=== PATIENT | male | born 1965 | race African-American/Black ===

== ENCOUNTER → 2016-11-05 | Outpatient (CLI) | payer OTHER | LOC: RAD 11:36 | DX: L40.0 Psoriasis vulgaris (principal); Z79.899 Other long term (current) drug therapy ==

== ENCOUNTER 2020-02-12 10:13 | Emergency (ER) | payer OTHER ==
[~2020-02-12] VITALS: Ht 172.7 cm; Wt 81.7 kg
[2020-02-12 10:14] VITALS: BP 164/109
[2020-02-12 10:54] LABS: HEMATOCRIT 41.4 % (42.0-52.0); MCH 31.5 pg (26.0-34.0); MCHC 33.8 g/dL (28.0-37.0); MCV 93.4 fL (80.0-100.0); PLATELET COUNT 253 thou/uL (150-400); RBC 4.43 mil/uL (4.50-6.00); RDW 12.9 % (10.5-14.5)
[2020-02-12 11:02] LABS: ANION GAP 7 mmol/L (7-16); BUN 11 mg/dL (7-18); CALCIUM 9.1 mg/dL (8.5-10.1); CHLORIDE 105 mmol/L (98-107); CO2 29 mmol/L (21-32); CREATININE 1.3 mg/dL (0.7-1.3); GLUCOSE 95 mg/dL (74-106); POTASSIUM 4.4 mmol/L (3.5-5.1); SODIUM 141 mmol/L (136-145)
[2020-02-12 11:10] LABS: TROPONIN-I <0.06 ng/mL (<0.06)
[2020-02-12 11:58] LABS: ABSOLUTE NEUTROPHILS 1.3 thou/uL (1.4-8.2)
--- NOTE | 2020-02-12 23:00 | EKG ---
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: rambo : 1965 Requested By: Bryan Gonzalez Order Number: [id number] MD: Jorge Reece Measurements Intervals [place] Rate: 78 P: 31 MS: 143 QRS: -1 QRSD: 92 T: 21 QT: 354 QTc: 404 Interpretive Statements Sinus rhythm Abnormal R-wave progression, early transition Baseline wander in lead(s) I No previous ECG available for comparison Electronically Signed On 02-12-2020 23:00:22 CDT by Jorge Reece [email or web address] <ELECTRONICALLY SIGNED> By: Jorge Reece MD, FACC 02/12/20 2300 1046 1046 Jorge Reece MD, [facility] /EPI
== END 2020-02-12 12:00 ==
LOC: ER 10:13
PROVIDERS: Emergency Medicine
DX: U07.1 COVID-19 (principal); R07.89 Other chest pain; R68.83 Chills (without fever); Z88.2 Allergy status to sulfonamides

== ENCOUNTER → 2020-05-11 | Outpatient (CLI) | payer OTHER ==
[2020-05-11 15:33] LABS: ABSOLUTE NEUTROPHILS 3.1 thou/uL (1.4-8.2); BASOPHILS 0.6 % (0.0-2.0); EOSINOPHILS 0.7 % (0.0-3.0); HEMATOCRIT 44.8 % (42.0-52.0); HEMOGLOBIN 15.5 gm/dL (14.0-18.0); LYMPHOCYTES 29.8 % (24.0-44.0); MCH 32.1 pg (26.0-34.0); MCHC 34.6 g/dL (28.0-37.0); MCV 92.8 fL (80.0-100.0); MONOCYTES 10.4 % (1.0-8.0); PLATELET COUNT 325 thou/uL (150-400); POLYS 58.5 % (36.0-66.0); RBC 4.82 mil/uL (4.50-6.00); RDW 12.9 % (10.5-14.5); WBC 5.3 thou/uL (4.0-11.0)
[2020-05-11 17:37] LABS: ALBUMIN 4.1 g/dL (3.4-5.0); ANION GAP 15 mmol/L (7-16); BUN 15 mg/dL (7-18); CALCIUM 9.5 mg/dL (8.5-10.1); CHLORIDE 103 mmol/L (98-107); CHOLESTEROL 263 mg/dL (<200); CO2 23 mmol/L (21-32); CREATININE 1.3 mg/dL (0.7-1.3); GLUCOSE 94 mg/dL (74-106); HDL CHOLESTEROL 76 mg/dL (>40); LDL CHOLESTEROL 167 mg/dL (<100); POTASSIUM 4.1 mmol/L (3.5-5.1); SGOT 15 U/L (15-37); SGPT 28 U/L (30-65); SODIUM 141 mmol/L (136-145); TC:HDL 3.5 Ratio (Not establshd); TOTAL BILIRUBIN 1.3 mg/dL (0.2-1.0); TOTAL PROTEIN 8.6 g/dL (6.4-8.2); TRIGLYCERIDE 104 mg/dL (<150); VLDL 21 mg/dL (<40)
[2020-05-11 17:38] LABS: SERUM ASSESSMENT Clear
[2020-05-12 02:06] LABS: GLYCOHEMOGLOBIN (HGB A1C) 5.4 % (4.8-5.6)
[2020-05-12 03:07] LABS: HAV IgM AB (ANTI-HAV IgM) Negative (Negative); HEPATITIS B SURFACE AG Negative (Negative); HEPATITIS C VIRUS AB <0.1 (0.0-0.9)
[2020-05-15 20:06] LABS: SYPHILIS AB Non Reactive (Non Reactive)
== END ==
LOC: LAB 14:42
PROVIDERS: ATTEND Family Medicine
DX: Z12.5 Encounter for screening for malignant neoplasm of prostate (principal); Z11.3 Encounter for screening for infections with a predominantly sexual mode of transmission; H53.9 Unspecified visual disturbance

== ENCOUNTER → 2020-05-13 | Outpatient (CLI) | payer OTHER | LOC: LAB 09:00 | PROVIDERS: ATTEND Family Medicine | DX: Z11.3 Encounter for screening for infections with a predominantly sexual mode of transmission (principal) ==

== ENCOUNTER → 2020-06-02 | Outpatient (CLI) | payer OTHER ==
[2020-06-02 12:53] LABS: ABSOLUTE NEUTROPHILS 2.8 thou/uL (1.4-8.2); BASOPHILS 0.6 % (0.0-2.0); EOSINOPHILS 0.6 % (0.0-3.0); HEMATOCRIT 46.6 % (42.0-52.0); HEMOGLOBIN 15.4 gm/dL (14.0-18.0); LYMPHOCYTES 28.6 % (24.0-44.0); MCH 31.1 pg (26.0-34.0); MCHC 33.2 g/dL (28.0-37.0); MCV 93.7 fL (80.0-100.0); MONOCYTES 10.2 % (1.0-8.0); PLATELET COUNT 307 thou/uL (150-400); RBC 4.97 mil/uL (4.50-6.00); RDW 12.8 % (10.5-14.5); WBC 4.7 thou/uL (4.0-11.0)
[2020-06-02 13:17] LABS: CREATININE 1.2 mg/dL (0.7-1.3); POTASSIUM 4.1 mmol/L (3.5-5.1); TOTAL BILIRUBIN 1.2 mg/dL (0.2-1.0); TOTAL PROTEIN 8.3 g/dL (6.4-8.2)
[2020-06-03 03:06] LABS: HAV IgM AB (ANTI-HAV IgM) Negative (Negative); HEPATITIS B SURFACE AG Negative (Negative); HEPATITIS C VIRUS AB <0.1 (0.0-0.9)
== END ==
LOC: LAB 10:43
PROVIDERS: ATTEND Internal Medicine Gastroenterology
DX: Z01.812 Encounter for preprocedural laboratory examination (principal); L40.8 Other psoriasis; Z20.822 Contact with and (suspected) exposure to COVID-19